=== PATIENT | female | born 1925 | race African-American/Black ===

== ENCOUNTER 2016-05-02 16:52 | Outpatient (CLI) | payer MEDICARE ==
[2016-05-02 17:11] LABS: #Basophils 0.1 thou/uL (0.0-0.2); #Eosinphils 0.1 thou/uL (0.0-0.7); #Monocytes 0.5 thou/uL (0.11-0.59); #Neutrophils 5.6 thou/uL (1.40-6.50); %Basophils 0.7 % (0.0-1.0); %Lymphocytes 24.4 % (21.0-51.0); %Monocytes 6.5 % (0.0-10.0); Hematocrit 38.4 % (36.0-47.0); Mean Platelet Volume 5.7 fL (7.4-10.4); Red Blood Cell (RBC) Count 4.29 mill/uL (4.20-5.40); White Blood Cell (WBC) Count 8.3 thou/uL (4.8-10.8)
[2016-05-02 17:12] LABS: ALT (SGPT) 21 U/L (0-55); AST (SGOT) 22 U/L (5-34); Alkaline Phosphatase 66 U/L (40-150); Anion Gap 14 mmol/L (10-20); BUN (Urea Nitrogen) 14 mg/dL (9.8-20.1); Bilirubin, Total 0.4 mg/dL (0.2-1.2); Calc. Creatinine Clearance 0 mL/min (70-130); Calcium 10.1 mg/dL (7.8-10.44); Carbon Dioxide 27 mmol/L (23-31); Chloride 104 mmol/L (98-107); Estimated GFR-MDRD 76; Globulin 3.4 g/dL (2.4-3.5); LDL Cholesterol, Calculated 100 mg/dL; Protein, Total 7.8 g/dL (5.8-8.1)
[2016-05-02 17:34] LABS: Hemoglobin A1c 5.7 % (4.0-6.0)
[2016-05-03 19:15] LABS: Microalbumin Urine 2.4 mg/dL (0.5-50.0)
== END 2016-05-02 16:53 | disposition home or self-care (01) ==
LOC: NAV SJFMSP 16:52
PROVIDERS: ATTEND Family Medicine
DX: E11.9 Type 2 diabetes mellitus without complications (principal)
CPT/HCPCS: 80053; 80061; 82043; 83036; 84439; 84443; 85025